=== PATIENT | male | born 1975 | race Two or more races ===

== ENCOUNTER → 2018-03-20 | Outpatient (CLI) | payer BC ==
[~2018-03-20] MED LIST: GADOBUTROL 7.5 MMOL/7.5 ML PFS ONE
[2018-03-20 14:21] LABS: CREATININE 1.16 mg/dL (0.7-1.3)
== END | disposition home or self-care (01) ==
LOC: RAD 13:10
PROVIDERS: ATTEND Otolaryngology
DX: H91.21 Sudden idiopathic hearing loss, right ear (principal)
CPT/HCPCS: 36415; 70553; 82565; A9585